=== PATIENT | male | born 2000 | race Two or more races ===

== ENCOUNTER 2023-10-29 13:29 | Emergency (ER) | payer OTHER ==
[2023-10-29 13:38] VITALS: RESP 18; TEMP 98; BMI 27.8
[2023-10-29] MEDS ORDERED: FAMOTIDINE 10 MG TABLET ONE (14:32)
[2023-10-29] MEDS ORDERED: PANTOPRAZOLE SODIUM 40 MG VIAL ONE (14:32)
[2023-10-29] MEDS: FAMOTIDINE 10 MG TABLET PO ONE (14:50)
[2023-10-29] MEDS: PANTOPRAZOLE SODIUM 40 MG VIAL IVPUSH ONE (14:50)
[2023-10-29 14:59] LABS: BASO % 0.9 % (0-2.0); EOS % 4.9 % (0-4.5); HEMATOCRIT 45.2 % (35.4-49); HEMOGLOBIN 15.3 GM/dL (11.7-16.9); LYMPH % 38.7 % (8-40); MCH 26.4 pg (25.7-33.7); MCHC 33.8 g/dl (32.0-35.9); MEAN CELL VOLUME 78.2 fl (80-96); MEAN PLT VOLUME 8.5 fl (7.5-11.1); MONO % 8.5 % (3.8-10.2); PLATELET COUNT 230 10^3/uL (134-434); RBC 5.79 M/mm3 (4.00-5.60); RDW 14.8 % (11.9-15.9); WHITE BLOOD COUNT 10.1 K/mm3 (4.0-10.0)
[2023-10-29 15:15] LABS: POTASSIUM 4.4 mmol/L (3.5-5.1)
[2023-10-29 15:17] LABS: CALCIUM 9.3 mg/dL (8.5-10.1)
[2023-10-29 15:18] LABS: ALBUMIN 4.2 g/dl (3.4-5.0); BLOOD UREA NITROGEN 24.9 mg/dL (7-18)
[2023-10-29 15:22] LABS: BILIRUBIN,TOTAL 0.5 mg/dL (0.2-1); TOT PROT 7.9 g/dl (6.4-8.2)
[2023-10-29 17:19] VITALS: BP 111/57; PULSE 83
== END 2023-10-29 17:19 | disposition home or self-care (01) ==
LOC: JER 13:29
PROC: 3E033GC Introduction of Other Therapeutic Substance into Peripheral Vein, Percutaneous Approach (ICD-10-PCS; principal; 2023-10-29)
DX: R10.13 Epigastric pain (principal); K62.5 Hemorrhage of anus and rectum
CPT/HCPCS: 36415; 76705-TC; 80053; 85025; 99284-25

== ENCOUNTER 2023-12-25 17:38 | Emergency (ER) | payer OTHER ==
[2023-12-25 18:01] VITALS: BP 125/72; RESP 18; TEMP 98.4; BMI 28.7
[2023-12-25 19:19] VITALS: PULSE 86
[2023-12-25 20:04] LABS: BASO % 0.8 % (0-2.0); EOS % 2.9 % (0-4.5); HEMATOCRIT 42.3 % (35.4-49); HEMOGLOBIN 14.8 GM/dL (11.7-16.9); LYMPH % 27.4 % (8-40); MCH 26.6 pg (25.7-33.7); MCHC 34.9 g/dl (32.0-35.9); MEAN CELL VOLUME 76.3 fl (80-96); MEAN PLT VOLUME 8.7 fl (7.5-11.1); MONO % 8.4 % (3.8-10.2); NEUT % 60.5 % (42.8-82.8); PLATELET COUNT 281 10^3/uL (134-434); RBC 5.55 M/mm3 (4.00-5.60); RDW 14.9 % (11.9-15.9)
[2023-12-25 20:12] LABS: INR 1.24 (0.83-1.09); PROTHROMBIN TIME (PATIENT) 14.4 SEC (9.7-13.0)
[2023-12-25 20:15] LABS: ACTIVATED PTT 29.8 SECONDS (25.2-36.5)
[2023-12-25 20:29] LABS: POTASSIUM 5.2 mmol/L (3.5-5.1)
[2023-12-25 20:32] LABS: ALBUMIN 4.1 g/dl (3.4-5.0); BLOOD UREA NITROGEN 9.5 mg/dL (7-18); CALCIUM 9.2 mg/dL (8.5-10.1); MAGNESIUM 2.1 mg/dL (1.8-2.4)
[2023-12-25 20:35] LABS: PHOSPHOROUS 3.8 mg/dL (2.5-4.9)
[2023-12-25 20:37] LABS: BILIRUBIN,TOTAL 0.6 mg/dL (0.2-1); TOT PROT 7.9 g/dl (6.4-8.2)
== END 2023-12-25 21:26 | disposition home or self-care (01) ==
LOC: JER 17:38
DX: R00.2 Palpitations (principal); R07.89 Other chest pain; R06.02 Shortness of breath; R61 Generalized hyperhidrosis; M79.603 Pain in arm, unspecified
CPT/HCPCS: 36415; 71046-TC-FY; 80053; 83735; 84100; 84484; 85025; 85610; 85730; 93005; 93010; 99285-25